=== PATIENT | male | born 1990 | race American Indian/Alaskan Native ===

== ENCOUNTER 2021-01-22 14:19 | Emergency (ER) | payer SELFPAY ==
[2021-01-22] MEDS ORDERED: fentaNYL 100 MCG/2 ML INJ IV ONE ×2 (14:25→15:11)
[2021-01-22] MEDS ORDERED: ONDANSETRON 4 MG/2 ML INJ IV ONE (14:25)
[2021-01-22] MEDS ORDERED: KETOROLAC 30 MG/1 ML INJ IV ONE (14:25)
[2021-01-22] MEDS ORDERED: ETOMIDATE 20 MG/10 ML INJ IV ONE (14:31)
--- NOTE | 2021-01-22 14:34 | Emergency Department Report ---
HPI - General Chief Complaint: Extremity Injury, Upper Time Seen by Provider: 01/22/21 14:22 - HPI HPI: Room 24 Patient is a 30-year-old male present with a chief complaint of right shoulder pain. Patient states he dislocated his shoulder throwing a ball just prior to arrival. Patient states he has dislocated his right shoulder 2 times in the past. Patient states he has not had anything to eat or drink today. ED Past Medical Hx - Past Medical History Previous Medical History?: Yes Additional medical history: dislocated R shoulder x3 - Surgical History Past Surgical History?: No - Family History Family history: no significant - Social History Smoking Status: Current Every Day Smoker (6 cigarettes daily) Substance Use Type: None (Denies illicit drug use) - Medications Home Medications: Home Medications Medication Instructions Recorded Confirmed Last Taken Type HYDROcodone/APAP 5-325 [[place] 1 - 2 each PO Q6HR PRN #14 tablet 01/22/21 Unknown Rx 5/325] Ibuprofen [Motrin 800 MG tab] 800 mg PO Q8HR PRN #20 tablet 01/22/21 Unknown Rx ED Review of Systems ROS: Stated complaint: SHOULDER INJURY Other details as noted in HPI Constitutional: no symptoms reported Eyes: denies: eye pain ENT: denies: throat pain Respiratory: no symptoms reported Cardiovascular: denies: chest pain Endocrine: no symptoms reported Gastrointestinal: denies: abdominal pain Genitourinary: denies: dysuria Musculoskeletal: arthralgia Neurological: denies: headache Physical Exam - Physical Exam Vital Signs: Vital Signs 01/22/21 14:22 Temperature 98.9 F Pulse Rate 95 H Respiratory 20 Rate Blood Pressure 146/64 O2 Sat by Pulse 98 Oximetry Physical Exam: GENERAL: The patient is well-developed well-nourished male sitting on stretcher appearing to be in moderate discomfort. [] HEENT: Normocephalic. Atraumatic. Extraocular motions are intact. Patient has moist mucous membranes. NECK: Supple. Trachea midline CHEST/LUNGS: There is no respiratory distress noted. HEART/CARDIOVASCULAR: Regular. There is no tachycardia. 2+ right radial pulse ABDOMEN: There is no abdominal distention. SKIN: There is no diaphoresis. NEURO: The patient is awake, alert, and oriented. The patient is cooperative. The patient has no focal neurologic deficits. The patient has normal speech. GCS 15 MUSCULOSKELETAL: There is obvious deformity of the right shoulder ED Course Vital Signs 01/22/21 14:22 Temperature 98.9 F Pulse Rate 95 H Respiratory 20 Rate Blood Pressure 146/64 O2 Sat by Pulse 98 Oximetry - Moderate Sedation Indications: fracture/dislocation redu ASA Class: I Mallampati Airway Score: 1 Time of Last PO Intake: 00:00 Preparation: diagnostic cardiac sonographer applied, pulse oximeter, capnometry used, supplemental O2 applied, suction/airway equipment at bedside, IV secured IV Etomidate Dose (mgs): 10 Complications: none Patient Tolerated Procedure: well - Orthopedic Joint Reduction Joint #1 Consent Obtained: verbal consent, written consent Time Out Performed: Yes Side: right Joint Reduction Location: shoulder Analgesia: moderate sedation Shoulder Technique Used (if applicable): traction/counter-traction Technique Used: traction/counter-traction Post-Reduction Neuro Exam: intact Post-Reduction Vascular Exam: intact Post Reduction X-Ray Obtained: Yes Post Reduction X-Ray Results: reduced Splint Applied: Yes Patient Tolerated Procedure: well ED Medical Decision Making - Radiology Data Radiology results: report reviewed (Right shoulder x-ray #1), image reviewed (Right shoulder x-ray #1, right shoulder x-ray #2) interpreted by me: Right shoulder x-ray #1-anterior dislocation Right shoulder x-ray #2-interval improvement of dislocation. No fractures. Anatomic. [address] [address] XRay Report Signed Patient: FIORDALIZA MARCH MR#: [id number] : 1990 Acct:[id number] Age/Sex: 30 / M ADM Date: 01/22/21 Loc: ED Attending Dr: Ordering Physician: KATIE SUH MD Date of Service: 01/22/21 Procedure(s): XR shoulder 2+V RT Accession Number(s): [id number] cc: KATIE SUH MD Fluoro Time In Minutes: Right shoulder radiograph, 2 views HISTORY: Pain after throwing COMPARISON: None FINDINGS: Anterior dislocation of the right glenohumeral joint. Small Hill-Sachs deformity is present in the posterolateral humeral head. No discrete glenoid fracture. Right AC joint is intact. Signer Name: Mahin Siu MD Signed: 01/22/2021 2:53 PM Workstation Name: [id number] Transcribed By: STEPHANE Dictated By: MAHIN SIU MD Electronically Authenticated By: MAHIN SIU MD Signed Date/Time: 01/22/211452 DD/ 50 TD/TT: Print Cancel - Differential Diagnosis Shoulder dislocation, humeral fracture Critical care attestation.: If time is entered above; I have spent that time in minutes in the direct care of this critically ill patient, excluding procedure time. ED Disposition Clinical Impression: Anterior dislocation of right shoulder Disposition: HOME / SELF CARE / HOMELESS Is pt being admited?: No Does the pt Need Aspirin: No Condition: Stable Instructions: Recurrent Shoulder Laxity and Instability, Shoulder Dislocation, [id number] Additional Instructions: Return to the emergency department should you develop worsening symptoms, inability to tolerate food or liquids, high fever or any other concerns Prescriptions: Ibuprofen [Motrin 800 MG tab] 800 mg PO Q8HR PRN #20 tablet PRN Reason: Pain, Moderate (4-6) HYDROcodone/APAP 5-325 [[place] 5/325] 1 - 2 each PO Q6HR PRN #14 tablet PRN Reason: Pain Referrals: PRIMARY CARE, [Primary Care Provider] - 3-5 Days JENNY GILL MD [Staff Physician] - 3-5 Days (Dr. Gill is an orthopedic surgeon. Please follow-up for further evaluation) Time of Disposition: 15:13
--- NOTE | 2021-01-22 14:57 | XRay Report ---
Right shoulder radiograph, 2 views HISTORY: Pain after throwing COMPARISON: None FINDINGS: Anterior dislocation of the right glenohumeral joint. Small Hill-Sachs deformity is present in the posterolateral humeral head. No discrete glenoid fracture. Right AC joint is intact. Signer Name: Sarthak Siu MD Signed: 01/22/2021 2:53 PM Workstation Name: [id number]
--- NOTE | 2021-01-22 15:13 | XRay Report ---
Right shoulder radiograph, single view HISTORY: Status post reduction COMPARISON: Same day radiograph. FINDINGS: There is successful reduction of the right shoulder dislocation. Right AC joint is intact. Small Hill-Sachs deformity better seen on prior study. No additional fracture identified. IMPRESSION: Successful reduction of right shoulder dislocation. Signer Name: Sarthak Siu MD Signed: 01/22/2021 3:09 PM Workstation Name: [id number]
[2021-01-22 16:22] VITALS: BP 111/61
== END 2021-01-22 16:29 | disposition home or self-care (01) ==
LOC: ED 14:19
DX: S43.084A Other dislocation of right shoulder joint, initial encounter (principal); F17.210 Nicotine dependence, cigarettes, uncomplicated; Z79.899 Other long term (current) drug therapy; X50.1XXA Overexertion from prolonged static or awkward postures, initial encounter; Y93.89 Activity, other specified; Y92.89 Other specified places as the place of occurrence of the external cause; Y99.8 Other external cause status
CPT/HCPCS: 23650; 73020; 73030; 96374; 96375; 96376; 99284; J1885; J2405; J3010